=== PATIENT | female | born 1970 | race Caucasian/White ===

== ENCOUNTER 2021-11-20 02:09 | Emergency (ER) | payer BC, MEDICAID | END 2021-11-20 03:00 | LOC: VM.ED 02:09 | DX: Z02.89 Encounter for other administrative examinations (principal) | CPT/HCPCS: 99283 ==

== ENCOUNTER 2022-05-15 20:34 | Emergency (ER) | payer BC ==
[2022-05-15] MEDS ORDERED: Sodium Chloride 0.9% 1,000 ML IV ONE (20:45)
[2022-05-15] MEDS ORDERED: Ondansetron 4 MG/2 ML SDV IVPUSH ONE ×2 (20:46→21:44)
[2022-05-15] MEDS ORDERED: Sodium Chloride 0.9% 10 ML Syringe FLUSH PRN (20:46)
[2022-05-15] MEDS ORDERED: LORazepam 2 MG/ML SDV IVPUSH ONE (21:28)
[2022-05-15] MEDS ORDERED: Meclizine 25 MG Tab PO ONE (21:30)
[2022-05-15] MEDS ORDERED: Take Home: Ondansetron 4 MG Tab.DIS, 5 Tab Pack PO ONE (22:30)
== END 2022-05-15 22:50 | disposition home or self-care (01) ==
LOC: VM.ED 20:34
DX: R11.15 Cyclical vomiting syndrome unrelated to migraine (principal); Z79.899 Other long term (current) drug therapy
CPT/HCPCS: 96361; 96374; 96375; 96376; 99283-25; 99284; A9270-GY; J2060; J2405; J7030; Q0162

== ENCOUNTER 2024-02-17 15:23 | Emergency (ER) | payer BC ==
[2024-02-17 15:49] LABS: BASOPHILS PERCENT AUTO 0.4 % (0.2-1.2); HEMATOCRIT 41.5 % (33.0-47.0); HEMOGLOBIN 14.7 g/dL (12.0-16.0); IMMATURE GRAN ABSOLUTE AUTO 0.02 x10^3/uL (0.00-0.07); LYMPHOCYTES ABSOLUTE AUTO 2.3 x10^3/uL (1.0-4.8); LYMPHOCYTES PERCENT AUTO 26.1 % (25.0-50.0); MEAN CORPUSCULAR HEMOGLOBIN 29.7 pg (26.0-32.0); MEAN CORPUSCULAR HGB CONC 35.4 g/dL (32.0-36.0); MEAN CORPUSCULAR VOLUME 83.8 fL (78.0-93.0); MONOCYTES ABSOLUTE AUTO 0.7 x10^3/uL (0.0-0.8); MONOCYTES PERCENT AUTO 7.5 % (2.0-11.0); NEUTROPHILS ABSOLUTE AUTO 5.9 x10^3/uL (1.8-7.7); NEUTROPHILS PERCENT AUTO 65.8 % (50.0-80.0); PLATELET COUNT,PLT 296 x10^3/uL (130-400); RED BLOOD CELL COUNT 4.95 x10^6/uL (4.00-5.50); WHITE BLOOD CELL COUNT,WBC 8.9 x10^3/uL (4.0-10.0)
[2024-02-17] MEDS: Ondansetron 4 MG/2 ML SDV IVPUSH ONE (15:51)
[2024-02-17] MEDS: Lactated Ringers 1,000 ML IV ONE (15:51)
[2024-02-17] MEDS: LORazepam 2 MG/ML SDV IVPUSH ONE (15:54)
[2024-02-17 16:08] LABS: A/G RATIO 1.05; ALANINE AMINOTRANSFERASE,ALT 26 U/L (14-59); ALKALINE PHOSPHATASE 58 U/L (46-116); ASPARTATE AMNIOTRANSFERASE,AST 26 U/L (15-37); BILIRUBIN TOTAL 0.9 mg/dL (0.2-1.0); BLOOD UREA NITROGEN,BUN 14 mg/dL (7-18); CALCIUM 9.3 mg/dL (8.5-10.1); CARBON DIOXIDE,CO2 24 mmol/L (21-32); CHLORIDE,CL 98 mmol/L (98-107); GLUCOSE RANDOM 121 mg/dL (70-99); POTASSIUM,K 3.7 mmol/L (3.5-5.1); PROTEIN TOTAL,TP 7.8 g/dL (6.4-8.2); SODIUM,NA 136 mmol/L (136-145)
[2024-02-17 16:09] LABS: ANION GAP 17.7 mmol/L (5-15); ESTIMATED GFR 67 mL/min (>=60)
== END 2024-02-17 16:44 | disposition home or self-care (01) ==
LOC: VM.ED 15:23
DX: R11.15 Cyclical vomiting syndrome unrelated to migraine (principal)
CPT/HCPCS: 80053; 85025; 96361; 96374; 96375; 99284; J2060; J2405; J7120

== ENCOUNTER 2024-09-19 07:38 | Emergency (ER) | payer BC ==
[2024-09-19] MEDS: Sodium Chloride 0.9% 1,000 ML IV ONE (08:08)
[2024-09-19] MEDS: Ondansetron 4 MG/2 ML SDV IVPUSH ONE (08:08)
[2024-09-19 08:10] LABS: BASOPHILS PERCENT AUTO 0.2 % (0.2-1.2); HEMATOCRIT 44.4 % (33.0-47.0); HEMOGLOBIN 15.3 g/dL (12.0-16.0); IMMATURE GRAN ABSOLUTE AUTO 0.01 x10^3/uL (0.00-0.07); LYMPHOCYTES ABSOLUTE AUTO 1.5 x10^3/uL (1.0-4.8); LYMPHOCYTES PERCENT AUTO 15.3 % (25.0-50.0); MEAN CORPUSCULAR HEMOGLOBIN 28.9 pg (26.0-32.0); MEAN CORPUSCULAR HGB CONC 34.5 g/dL (32.0-36.0); MEAN CORPUSCULAR VOLUME 83.8 fL (78.0-93.0); MONOCYTES ABSOLUTE AUTO 0.8 x10^3/uL (0.0-0.8); MONOCYTES PERCENT AUTO 7.9 % (2.0-11.0); NEUTROPHILS ABSOLUTE AUTO 7.5 x10^3/uL (1.8-7.7); NEUTROPHILS PERCENT AUTO 76.5 % (50.0-80.0); PLATELET COUNT,PLT 284 x10^3/uL (130-400); WHITE BLOOD CELL COUNT,WBC 9.8 x10^3/uL (4.0-10.0)
[2024-09-19 08:23] LABS: A/G RATIO 0.93; ALANINE AMINOTRANSFERASE,ALT 19 U/L (14-59); ALBUMIN 3.7 g/dL (3.4-5.0); ALKALINE PHOSPHATASE 68 U/L (46-116); ASPARTATE AMNIOTRANSFERASE,AST 19 U/L (15-37); BILIRUBIN TOTAL 0.9 mg/dL (0.2-1.0); BLOOD UREA NITROGEN,BUN 17 mg/dL (7-18); C-REACTIVE PROTEIN 1.09 mg/dL (<=0.50); CALCIUM 9.5 mg/dL (8.5-10.1); CARBON DIOXIDE,CO2 27 mmol/L (21-32); CHLORIDE,CL 97 mmol/L (98-107); GLUCOSE RANDOM 134 mg/dL (70-99); LIPASE 43 U/L (19-71); POTASSIUM,K 3.3 mmol/L (3.5-5.1); PROTEIN TOTAL,TP 7.7 g/dL (6.4-8.2); SODIUM,NA 135 mmol/L (136-145)
[2024-09-19 08:28] LABS: ANION GAP 14.3 mmol/L (5-15); ESTIMATED GFR 66 mL/min (>=60)
[2024-09-19] MEDS: Potassium Bicarbonate/Cit Ac 10 MEQ Effervescent Tab PO ONE (08:45)
[2024-09-19] MEDS: Potassium Bicarbonate/Cit Ac 10 MEQ Effervescent Tab ONE (08:58)
== END 2024-09-19 09:08 | disposition home or self-care (01) ==
LOC: VM.ED 07:38
DX: K52.9 Noninfective gastroenteritis and colitis, unspecified (principal); E87.6 Hypokalemia; E86.0 Dehydration; Z79.899 Other long term (current) drug therapy
CPT/HCPCS: 80053; 83690; 85025; 86140; 87428; 96361; 96374; 99284; A9270; J2405; J7030